=== PATIENT | male | born 1955 | race African-American/Black ===

== ENCOUNTER 2018-06-02 03:22 | Emergency (ER) | payer OTHER ==
[2018-06-02 03:43] VITALS: BP 176/97; PULSE 78; TEMP 97.8; BMI 32.1
--- NOTE | 2018-06-02 03:48 | PDOC ---
History of Present Illness - General Chief Complaint: Nasal Bleeding Stated Complaint: NOSE BLEED Time Seen by Provider: 06/02/18 03:48 Past History - Past Medical History Allergies/Adverse Reactions: Allergies Allergy/AdvReac Type Severity Reaction Status Date / Time No Known Allergies Allergy Verified 06/02/18 03:40 COPD: No HTN: Yes - Suicide/Smoking/Psychosocial Hx Smoking History: Current every day smoker Number of Cigarettes Smoked Daily: 4 Information on smoking cessation initiated: Yes *Physical Exam - Vital Signs Last Vital Signs Temp Pulse Resp BP Pulse Ox 97.8 F 78 18 176/97 H 97 06/02/18 03:37 06/02/18 03:37 06/02/18 03:37 06/02/18 03:37 06/02/18 03:37 Moderate Sedation - Procedure Monitoring Vital Signs: Procedure Monitoring Vital Signs Temperature 97.8 F 06/02/18 03:37 Pulse Rate 78 06/02/18 03:37 Respiratory Rate 18 06/02/18 03:37 Blood Pressure 176/97 H 06/02/18 03:37 O2 Sat by Pulse Oximetry (%) 97 06/02/18 03:37
--- NOTE | 2018-06-02 04:10 | PDOC ---
History of Present Illness - General Chief Complaint: Nasal Bleeding Stated Complaint: NOSE BLEED Time Seen by Provider: 06/02/18 03:48 History Source: Patient Exam Limitations: No Limitations - History of Present Illness Initial Comments: 06/02/18 04:02 Patient is a 62 year old male with h/o HTN, c/o nose bleeding since yesterday at noon. Bleeding intermittently. Has URI has been blowing nose. No GUAN, fever, chills. PMHX: as above PSOCHX: (+) cig <1 ppd ALL: NKDA GENERAL/CONSTITUTIONAL: [No fever or chills. No weakness. No weight change.] HEAD, EYES, EARS, NOSE AND THROAT: [No change in vision. No ear pain or discharge. No sore throat.] CARDIOVASCULAR: [No chest pain or shortness of breath.] RESPIRATORY: [No cough, wheezing, or hemoptysis.] GASTROINTESTINAL: [No nausea, vomiting, diarrhea or constipation. No rectal bleeding.] GENITOURINARY: [No dysuria, frequency, or change in urination.] MUSCULOSKELETAL: [No joint or muscle swelling or pain. No neck or back pain.] SKIN AND BREASTS: [No rash or easy bruising.] NEUROLOGIC: [No headache, vertigo, loss of consciousness, or loss of sensation.] PSYCHIATRIC: [No depression or anxiety.] ENDOCRINE: [No increased thirst. No abnormal weight change.] HEMATOLOGIC/LYMPHATIC: [No anemia, easy bleeding, or history of blood clots.] ALLERGIC/IMMUNOLOGIC: [No hives or skin allergy. No latex allergy.] GENERAL: [The patient is awake, alert, and fully oriented, in no acute distress. ] HEAD: [Normal with no signs of trauma.] EYES: [Pupils equal, round and reactive to light, extraocular movements intact, sclera anicteric, conjunctiva clear.] ENT: [Ears normal, nares patent, eroded left anterior nasal septum, oropharynx clear without exudates, no bleeding. Moist mucous membranes.] NECK: [Normal range of motion, supple without lymphadenopathy, JVD, or masses.] LUNGS: [Breath sounds equal, clear to auscultation bilaterally. No wheezes, and no crackles.] HEART: [Regular rate and rhythm, normal S1 and S2 without murmur, rub.] ABDOMEN: [Soft, nontender, normoactive bowel sounds. No guarding, no rebound. No masses.] EXTREMITIES: [Normal range of motion, no edema. No clubbing or cyanosis. No cords, erythema, or tenderness.] NEUROLOGICAL: [Cranial nerves II through XII grossly intact. Normal speech, normal gait.] PSYCH: [Normal mood, normal affect.] SKIN: [Warm, Dry, normal turgor, no rashes or lesions noted.] Past History - Past Medical History Allergies/Adverse Reactions: Allergies Allergy/AdvReac Type Severity Reaction Status Date / Time No Known Allergies Allergy Verified 06/02/18 03:40 Home Medications: Ambulatory Orders Clindamycin [Cleocin -] 300 mg PO TID #21 capsule 06/02/18 COPD: No HTN: Yes - Suicide/Smoking/Psychosocial Hx Smoking History: Current every day smoker Number of Cigarettes Smoked Daily: 4 Information on smoking cessation initiated: Yes *Physical Exam - Vital Signs Last Vital Signs Temp Pulse Resp BP Pulse Ox 97.8 F 78 18 176/97 H 97 06/02/18 03:37 06/02/18 03:37 06/02/18 03:37 06/02/18 03:37 06/02/18 03:37 Moderate Sedation - Procedure Monitoring Vital Signs: Procedure Monitoring Vital Signs Temperature 97.8 F 06/02/18 03:37 Pulse Rate 78 06/02/18 03:37 Respiratory Rate 18 06/02/18 03:37 Blood Pressure 176/97 H 06/02/18 03:37 O2 Sat by Pulse Oximetry (%) 97 06/02/18 03:37 Medical Decision Making - Medical Decision Making 06/02/18 04:02 Patient is a 62 year old male with h/o HTN, c/o nose bleeding since yesterday at noon. Bleeding intermittently. Has URI has been blowing nose. No GUAN, fever, chills. Patrick-Synephrine spray to the left knee are Patient packed with 4.5 Rapid Rhino with good control of bleeding clindamycin 300mg po tid ordered I discussed the physical exam findings, ancillary test results and final diagnoses with the patient. I answered all of the patient's questions. The patient was satisfied with the care received and felt comfortable with the discharge plan and treatment plan. The Patient agrees to follow up with the primary care physician within 24-72 hours. 06/02/18 05:17 *DC/Admit/Observation/Transfer Diagnosis at time of Disposition: Epistaxis - Discharge Dispostion Disposition: HOME Condition at time of disposition: Stable - Prescriptions Prescriptions: Clindamycin [Cleocin -] 300 mg PO TID #21 capsule - Referrals - Patient Instructions Additional Instructions: Your Discharge Instructions: You must call primary care physician within 24 hours to arrange follow-up. Return to the Emergency Department with any new, persistent or worsening symptoms, for fever, chills, SOB, dizziness or any other concerning changes that may occur. May follow up with an ENT of your choice. Packing removal in 3 days. Take the antibiotics as prescribed. - Post Discharge Activity
[2018-06-02] MEDS ORDERED: OXYMETAZOLINE 0.05% NASAL SOLUTION 15 ML BOTTLE NS ONE (04:19)
[2018-06-02] MEDS ORDERED: PHENYLEPHRINE 0.25% NASAL SPRAY 15 ML BOTTLE NS SCH (10:00)
== END 2018-06-02 05:24 | disposition home or self-care (01) ==
LOC: JER 03:22
PROC: 093K7ZZ Control Bleeding in Nasal Mucosa and Soft Tissue, Via Natural or Artificial Opening (ICD-10-PCS; principal; 2018-06-02)
DX: R04.0 Epistaxis (principal); J06.9 Acute upper respiratory infection, unspecified; I10 Essential (primary) hypertension
CPT/HCPCS: 99281-25